=== PATIENT | male | born 1985 | race Caucasian/White ===

== ENCOUNTER 2019-12-05 20:38 | Emergency (ER) | payer MEDICAID ==
[~2019-12-05] VITALS: Ht 177.8 cm; Wt 88.5 kg
--- NOTE | 2019-12-05 20:50 | NUR ---
PT BIBRA C/O OVERDOSE, AFTER TAKING CRYSTAL METH 3 DAYS AGO. PATIENT A/OX4, BREATHING EVEN AND UNLABORED, NO SOB NOTED. KEPT COMFORTABLE.
[2019-12-05] MEDS ORDERED: LORAZEPAM INJ 2 MG/ML VIAL IM ONE (21:00)
[2019-12-05] MEDS ORDERED: OLANZAPINE 10 MG VIAL IM ONE ×4 (21:00→22:30)
[2019-12-05] MEDS ORDERED: LORAZEPAM INJ 2 MG/ML VIAL ONE ×2 (21:18→22:09)
[2019-12-05 21:26] LABS: BASOPHILS # (AUTO) 0.1 /CMM (0.0-0.2); BASOPHILS % (AUTO) 0.8 % (0.0-2.0); EOSINOPHILS % (AUTO) 1.8 % (0.0-6.0); HEMATOCRIT 38 % (39-51); HEMOGLOBIN 12.5 g/dL (13.5-17.5); LYMPHOCYTES # (AUTO) 1.5 /CMM (0.8-4.8); LYMPHOCYTES % (AUTO) 17.6 % (20.0-44.0); MEAN CORPUSCULAR HGB CONC 33 g/dl (31.0-36.0); MEAN CORPUSCULAR VOLUME 83 fL (80-96); MONOCYTES # (AUTO) 0.6 /CMM (0.1-1.30); MONOCYTES % (AUTO) 7.3 % (2.0-12.0); NEUTROPHILS % (AUTO) 72.5 % (43.0-81.0); PLATELET COUNT (AUTO) 267 /CMM (150-450); RED BLOOD CELL COUNT(AUTO) 4.52 MIL/uL (4.5-6.0); WHITE BLOOD COUNT (AUTO) 8.2 K/uL (4.3-11.0)
[2019-12-05] MEDS ORDERED: IV NS 0.9% 1,000 ML BAG IV ONE (21:30)
[2019-12-05 21:35] LABS: APPEARANCE,URINE CLEAR (CLEAR); BILIRUBIN,URINE NEGATIVE (NEGATIVE); BLOOD, URINE NEGATIVE Ery/uL (NEGATIVE); COLOR,URINE YELLOW (YELLOW); KETONES,URINE NEGATIVE (NEGATIVE); LEUKOCYTE ESTERASE ,URINE NEGATIVE (NEGATIVE); NITRITE, URINE NEGATIVE (NEGATIVE); PROTEIN,URINE NEGATIVE (NEGATIVE); UGLUCOSE NEGATIVE (NEGATIVE); UROBILINOGEN,URINE 0.2 EU/dL (0.2)
[2019-12-05 21:42] LABS: CALCIUM, SERUM 8.7 mg/dL (8.5-10.1); CARBON DIOXIDE 28 mmol/L (21-32); CHLORIDE 105 mmol/L (98-107); CREATININE 0.7 mg/dL (0.6-1.3); GLUCOSE 143 mg/dL (74-106); SODIUM SERUM 142 mmol/L (136-145); UREA NITROGEN, BLOOD 7 mg/dL (7-18)
[2019-12-05 21:47] LABS: CREATINE KINASE, TOTAL 494 U/L (39-308)
[2019-12-05 21:48] LABS: ALANINE AMINOTRANSFERASE 36 U/L (12-78); ALBUMIN 3.3 g/dL (3.4-5.0); ALKALINE PHOSPHATASE 104 U/L (46-116); ASPARTATE AMINOTRANSFERASE 28 U/L (15-37); BILIRUBIN,DIRECT 0.1 mg/dL (0.0-0.2); BILIRUBIN,TOTAL 0.4 mg/dL (0.2-1.0); SALICYLATE 3.7 mg/dL (2.8-20.0); TOTAL PROTEIN, SERUM 6.4 g/dL (6.4-8.2)
[2019-12-05 21:49] LABS: ALCOHOL, BLOOD < 3 mg/dL (0-0)
--- NOTE | 2019-12-05 22:29 | NUR ---
PATIENT AGITATED, SCREAMING RESTLESS, ATTEMPTING TO GET OUT OF BED. PATIENT REDIRECTED TO GO BACK TO BED FOR SAFETY. MEDICATIONS ADMINISTERED.
[2019-12-05] MEDS ORDERED: LORAZEPAM INJ 2 MG/ML VIAL IV ONE (22:30)
[2019-12-05] MEDS ORDERED: POTASSIUM CHLORIDE 20 MEQ TAB.PRT.SR PO ONE (23:00)
--- NOTE | 2019-12-06 02:14 | NUR ---
Patient is resting comfortably in bed with eyes closed. Easily aroused. VSS.
[2019-12-06] MEDS ORDERED: POTASSIUM CHLORIDE 20 MEQ TAB.PRT.SR PO ONE ×2 (04:56→04:58)
--- NOTE | 2019-12-06 05:04 | NUR ---
IV removed. Catheter intact and site benign. Pressure and 4x4 applied to site. No bleeding noted.
--- NOTE | 2019-12-06 06:10 | NUR ---
NOTED UNSTEADY GAIT WHILE AMBULATING TO RESTROOM. WILL CONTINUE TO MONITOR
--- NOTE | 2019-12-06 07:30 | NUR ---
Patient discharged to home in stable condition. Written and verbal after care instructions given. Patient verbalizes understanding of instruction. PT ambulated with steady gait. VSS.
[2019-12-06 07:31] VITALS: BP 124/82
== END 2019-12-06 07:31 | disposition home or self-care (01) ==
LOC: ER 20:38
DX: F15.10 Other stimulant abuse, uncomplicated (principal); R41.82 Altered mental status, unspecified; R00.0 Tachycardia, unspecified; F41.9 Anxiety disorder, unspecified; F32.9 Major depressive disorder, single episode, unspecified; F17.210 Nicotine dependence, cigarettes, uncomplicated; R45.1 Restlessness and agitation
CPT/HCPCS: 36415; 80048; 80076; 80305; 80307; 80329; 81001; 82550; 84484; 85025; 93005; 96361; 96372 ×2; 96374; 99285; G0480; J2060 ×2; J3490 ×2; J7030; 81000-TC

== ENCOUNTER 2020-01-04 15:46 | Emergency (ER) | payer MEDICAID ==
[~2020-01-04] VITALS: Ht 185.4 cm; Wt 89.4 kg
--- NOTE | 2020-01-04 15:48 | NUR ---
DR WYNN AT BEDSIDE
--- NOTE | 2020-01-04 15:48 | NUR ---
BIB RA 61 FROM HOME,AGITATED,VERBALLY ABUSIVE, TO ER BED 6, HOOKED TO MONITOR, AWAITING MD BURRIS.
[2020-01-04] MEDS ORDERED: OLANZAPINE 10 MG VIAL IM ONE ×2 (15:52→16:00)
[2020-01-04] MEDS ORDERED: LORAZEPAM INJ 2 MG/ML VIAL ONE ×2 (16:16→18:41)
[2020-01-04 16:17] LABS: EOSINOPHILS % (AUTO) 1.8 % (0.0-6.0); HEMATOCRIT 42 % (39-51); HEMOGLOBIN 13.9 g/dL (13.5-17.5); LYMPHOCYTES # (AUTO) 1.4 /CMM (0.8-4.8); LYMPHOCYTES % (AUTO) 21.2 % (20.0-44.0); MEAN CORPUSCULAR HGB CONC 33 g/dl (31.0-36.0); MEAN CORPUSCULAR VOLUME 83 fL (80-96); MONOCYTES # (AUTO) 0.4 /CMM (0.1-1.30); MONOCYTES % (AUTO) 5.8 % (2.0-12.0); NEUTROPHILS # (AUTO) 4.7 /CMM (1.8-8.9); NEUTROPHILS % (AUTO) 71.2 % (43.0-81.0); PLATELET COUNT (AUTO) 245 /CMM (150-450); RED BLOOD CELL COUNT(AUTO) 5.07 MIL/uL (4.5-6.0); WHITE BLOOD COUNT (AUTO) 6.6 K/uL (4.3-11.0)
[2020-01-04 16:25] LABS: CALCIUM, SERUM 9.2 mg/dL (8.5-10.1); CARBON DIOXIDE 26 mmol/L (21-32); CHLORIDE 104 mmol/L (98-107); GLUCOSE 150 mg/dL (74-106); SODIUM SERUM 140 mmol/L (136-145); UREA NITROGEN, BLOOD 8 mg/dL (7-18)
[2020-01-04] MEDS ORDERED: LORAZEPAM INJ 2 MG/ML VIAL IM ONE (16:30)
[2020-01-04 16:32] LABS: ACETAMINOPHEN < 2 ug/ml (10-30); ALANINE AMINOTRANSFERASE 34 U/L (12-78); ALBUMIN 3.8 g/dL (3.4-5.0); ALCOHOL, BLOOD 5 mg/dL (0-0); ALKALINE PHOSPHATASE 118 U/L (46-116); ASPARTATE AMINOTRANSFERASE 20 U/L (15-37); BILIRUBIN,DIRECT 0.1 mg/dL (0.0-0.2); BILIRUBIN,TOTAL 0.6 mg/dL (0.2-1.0); SALICYLATE 2.7 mg/dL (2.8-20.0); TOTAL PROTEIN, SERUM 6.9 g/dL (6.4-8.2)
[2020-01-04 16:50] LABS: APPEARANCE,URINE Clear (CLEAR); BILIRUBIN,URINE Negative (NEGATIVE); BLOOD, URINE Trace-lysed Ery/uL (NEGATIVE); COLOR,URINE Yellow (YELLOW); KETONES,URINE Negative (NEGATIVE); LEUKOCYTE ESTERASE ,URINE Negative (NEGATIVE); NITRITE, URINE Negative (NEGATIVE); PROTEIN,URINE Negative (NEGATIVE); UGLUCOSE Negative (NEGATIVE); UROBILINOGEN,URINE 0.2 EU/dL (0.2)
[2020-01-04 17:05] LABS: BACTERIA,URINE Rare /HPF (None Seen); SQUAMOUS EPITHELIAL CELL,UR Few /HPF (None Seen); WBC,URINE NONE SEEN /HPF (0-3)
[2020-01-04] MEDS ORDERED: IV NS 0.9% 1,000 ML BAG IV ONE (17:30)
[2020-01-04] MEDS ORDERED: LORAZEPAM INJ 2 MG/ML VIAL IV ONE (18:30)
--- NOTE | 2020-01-04 19:25 | NUR ---
REPORT RECEIVED FROM FRANKI PRITCHARD FOR MARICEL
--- NOTE | 2020-01-04 19:25 | NUR ---
REPORT GIVEN TO FRANCESCA DOAN FOR MARICEL
--- NOTE | 2020-01-04 19:50 | NUR ---
PT RESTING COMFORTABLY IN BED. VSS AT THIS TIME. NO ACUTE DISTRESS NOTED. WILL CONTINUE TO MONITOR
--- NOTE | 2020-01-04 21:09 | NUR ---
PT AWAKE. CALM AND COOPERATIVE. PROVIDED PT WITH URINAL. CALL LIGHT WITHIN REACH. STILL ON MONITOR, WILL CONTINUE TO MONITOR
--- NOTE | 2020-01-04 23:04 | NUR ---
PT RESTING COMFORTABLY IN BED. VSS AT THIS TIME. NO ACUTE DISTRESS NOTED. WILL CONTINUE TO MONITOR. CALL LIGHT WITHIN REACH
--- NOTE | 2020-01-05 00:34 | NUR ---
PT IN BED SLEEPING CONFORTABLY. NAD NOTED
--- NOTE | 2020-01-05 03:20 | NUR ---
PT RESTING COMFORTABLY IN BED. VSS AT THIS TIME. NO ACUTE DISTRESS NOTED. WILL CONTINUE TO MONITOR. CALL LIGHT WITHIN REACH
--- NOTE | 2020-01-05 04:59 | NUR ---
PT RESTING COMFORTABLY IN BED. VSS AT THIS TIME. NO ACUTE DISTRESS NOTED. WILL CONTINUE TO MONITOR. CALL LIGHT WITHIN REACH
--- NOTE | 2020-01-05 05:30 | NUR ---
IV removed. Catheter intact and site benign. Pressure and 4x4 applied to site. No bleeding noted.
--- NOTE | 2020-01-05 05:51 | NUR ---
Patient given written and verbal discharge instructions. Patient verbalizes understanding of instructions. Patient is ambulatory with steady gait. Refuses offer of half-way placement. Patient given list of available shelters in surrounding area. Pt given food, tap card, and blanket. Pt ambulated with steday gait. Signed discharge paper.
[2020-01-05 05:53] VITALS: BP 117/69
== END 2020-01-05 05:54 | disposition home or self-care (01) ==
LOC: ER 15:47
DX: F15.10 Other stimulant abuse, uncomplicated (principal); R41.82 Altered mental status, unspecified; R45.1 Restlessness and agitation; R00.0 Tachycardia, unspecified; F17.210 Nicotine dependence, cigarettes, uncomplicated; Z60.2 Problems related to living alone
CPT/HCPCS: 36415; 80048; 80076; 80305; 80307; 80329; 81001; 82550; 84484; 85025; 93005; 96361; 96372 ×2; 96374; 99285; 99406; G0480; J2060 ×2; J3490; J7030; 81000-TC

== ENCOUNTER 2020-01-20 02:11 | Emergency (ER) | payer MEDICAID ==
[~2020-01-20] VITALS: Ht 185.4 cm; Wt 83.9 kg
--- NOTE | 2020-01-20 02:14 | NUR ---
PT BIBRA 889 FROM HOME C/O DEPRESSION, +SI "I WANT TO CUT MY SELF" PT IS AAOX4, NOT IN RESPIRATORY DISTRESS, V/S STABLE, KEPT RESTED AND COMFORTABLE, WILL CONTINUE TO MONITOR.
--- NOTE | 2020-01-20 02:19 | NUR ---
AT BEDSIDE FOR EVAL.
--- NOTE | 2020-01-20 02:26 | NUR ---
AWAITING URINE SAMPLE. EMT AT BEDSIDE FOR EKG
--- NOTE | 2020-01-20 02:40 | NUR ---
[employer] AT BEDSIDE.
[2020-01-20] MEDS ORDERED: diphenhydrAMINE HCL 50 MG/ML VIAL ONE (02:43)
[2020-01-20] MEDS ORDERED: HALOPERIDOL LACTATE INJ 5 MG/ML VIAL ONE (02:43)
[2020-01-20] MEDS ORDERED: LORAZEPAM INJ 2 MG/ML VIAL ONE (02:44)
[2020-01-20] MEDS ORDERED: diphenhydrAMINE HCL 50 MG/ML VIAL IM ONE (03:00)
[2020-01-20] MEDS ORDERED: LORAZEPAM INJ 2 MG/ML VIAL IV ONE (03:00)
[2020-01-20] MEDS ORDERED: HALOPERIDOL LACTATE INJ 5 MG/ML VIAL IM ONE (03:00)
[2020-01-20 03:21] LABS: CALCIUM, SERUM 8.7 mg/dL (8.5-10.1); CARBON DIOXIDE 26 mmol/L (21-32); CHLORIDE 102 mmol/L (98-107); CREATININE 0.7 mg/dL (0.6-1.3); GLUCOSE 105 mg/dL (74-106); POTASSIUM 3.3 mmol/L (3.5-5.1); SODIUM SERUM 138 mmol/L (136-145); UREA NITROGEN, BLOOD 16 mg/dL (7-18)
[2020-01-20 03:24] LABS: ALANINE AMINOTRANSFERASE 38 U/L (12-78); ALBUMIN 3.4 g/dL (3.4-5.0); ALCOHOL, BLOOD < 3 mg/dL (0-0); ALKALINE PHOSPHATASE 135 U/L (46-116); ASPARTATE AMINOTRANSFERASE 24 U/L (15-37); BILIRUBIN,DIRECT 0.1 mg/dL (0.0-0.2); BILIRUBIN,TOTAL 0.2 mg/dL (0.2-1.0); SALICYLATE 4.1 mg/dL (2.8-20.0); TOTAL PROTEIN, SERUM 6.7 g/dL (6.4-8.2)
[2020-01-20 03:28] LABS: BASOPHILS # (AUTO) 0.1 /CMM (0.0-0.2); BASOPHILS % (AUTO) 0.9 % (0.0-2.0); EOSINOPHILS % (AUTO) 2.2 % (0.0-6.0); HEMATOCRIT 40 % (39-51); HEMOGLOBIN 13.2 g/dL (13.5-17.5); LYMPHOCYTES # (AUTO) 1.8 /CMM (0.8-4.8); LYMPHOCYTES % (AUTO) 22.4 % (20.0-44.0); MEAN CORPUSCULAR HGB CONC 33 g/dl (31.0-36.0); MEAN CORPUSCULAR VOLUME 82 fL (80-96); MONOCYTES # (AUTO) 0.5 /CMM (0.1-1.30); MONOCYTES % (AUTO) 6.8 % (2.0-12.0); NEUTROPHILS # (AUTO) 5.3 /CMM (1.8-8.9); NEUTROPHILS % (AUTO) 67.7 % (43.0-81.0); PLATELET COUNT (AUTO) 264 /CMM (150-450); RED BLOOD CELL COUNT(AUTO) 4.84 MIL/uL (4.5-6.0); WHITE BLOOD COUNT (AUTO) 7.8 K/uL (4.3-11.0)
--- NOTE | 2020-01-20 03:38 | NUR ---
GALINA OBTAINED AND SENT TO LAB
[2020-01-20 03:44] LABS: APPEARANCE,URINE Clear (CLEAR); BILIRUBIN,URINE Negative (NEGATIVE); BLOOD, URINE Negative Ery/uL (NEGATIVE); COLOR,URINE Yellow (YELLOW); KETONES,URINE Negative (NEGATIVE); LEUKOCYTE ESTERASE ,URINE Negative (NEGATIVE); NITRITE, URINE Negative (NEGATIVE); PROTEIN,URINE Trace mg/dl (NEGATIVE); UGLUCOSE Negative (NEGATIVE); UROBILINOGEN,URINE 0.2 EU/dL (0.2)
[2020-01-20 03:50] LABS: ACETAMINOPHEN 0 ug/ml (10-30)
[2020-01-20 03:57] LABS: BACTERIA,URINE Few /HPF (None Seen); RBC,URINE 0-2 /HPF (0-2); SQUAMOUS EPITHELIAL CELL,UR Rare /HPF (None Seen); WBC,URINE 0-2 /HPF (0-3)
--- NOTE | 2020-01-20 04:35 | NUR ---
CLINICAL AND FACESHEET FAXED TO [facility] INTAKE FOR VOLUNTARY PSYCH ADMISSION.
--- NOTE | 2020-01-20 04:49 | NUR ---
BEING REVIEWED PER CJ. POTASSIUM LOW 3.3 L. WILL GIVE POTASSIUM AND RESEND LABS TO [facility].
[2020-01-20] MEDS ORDERED: POTASSIUM CHLORIDE 20 MEQ POWDER PACKET ONE ×2 (04:55→05:05)
[2020-01-20] MEDS ORDERED: POTASSIUM CHLORIDE 20 MEQ TAB.PRT.SR PO ONE (05:00)
--- NOTE | 2020-01-20 05:08 | NUR ---
Patient is resting comfortably in bed. Easily aroused. VSS.
--- NOTE | 2020-01-20 06:42 | NUR ---
Graduate Intern at bedside for second potassium draw.
--- NOTE | 2020-01-20 07:10 | NUR ---
CALLED INTAKE, PER LUIS "WAITING FOR ADMITING MD" AND WILL CALL BACK FOR TRANSFER INFO.
--- NOTE | 2020-01-20 08:01 | NUR ---
SO SHIVA WILSON CALLED AND PT IS ACCEPTED. GOING TO UNIT [address]. ACCEPTING IS DR. SOLARES AND DR. MANRIQUE. PT GOING TO ROOM 108-A. NUMBER FOR REPORT. [phone] EXT. [id number].
[2020-01-20 08:06] VITALS: BP 115/66
--- NOTE | 2020-01-20 08:15 | NUR ---
NEIL SIMPSON [id number] HR. TRIP # [id number]
--- NOTE | 2020-01-20 08:24 | NUR ---
REPORT GIVEN TO JANET AT [facility]. AWAITING TRANSPORT.
== END 2020-01-20 09:26 ==
LOC: ER 02:12
DX: R45.851 Suicidal ideations (principal); F17.200 Nicotine dependence, unspecified, uncomplicated; R94.31 Abnormal electrocardiogram [ECG] [EKG]; Z60.2 Problems related to living alone
CPT/HCPCS: 36415; 80048; 80076; 80305; 80307; 80329; 81001; 84132; 85025; 93005; 96372 ×2; 99285; G0480; J1200; J1630; J2060; 81000-TC